=== PATIENT | female | born 1965 | race Caucasian/White ===

== ENCOUNTER 2018-09-16 14:06 | Inpatient (IN) | payer BC ==
[~2018-09-16] VITALS: Ht 152.4 cm; Wt 124.3 kg
[2018-09-16] MEDS ORDERED: IPRATRPIUM/ALBUTEROL 0.5/2.5MG 3 ML NEBU. NEB ONE (14:30)
[2018-09-16 14:44] LABS: BASO % 0 % (0-3); EOS % 0 % (0-3); HEMATOCRIT 41.3 % (36.0-47.0); HEMOGLOBIN 13.9 g/dL (12.0-15.5); LYMPH # 0.9 x10^3/uL (1.0-4.8); LYMPH % 13 % (24-48); MEAN CORPUSCULAR HEMOGLOBIN 28 pg (25-35); MEAN CORPUSCULAR HGB CONC 34 g/dL (31-37); MEAN CORPUSCULAR VOLUME 83 fL (79-100); MONO # 0.2 x10^3/uL (0.0-1.1); MONO % 3 % (0-9); NEUT # 5.9 x10^3uL (1.8-7.7); NEUT % 84 % (31-73); PLATELET COUNT 262 x10^3/uL (140-400); RED CELL DISTRIBUTION WIDTH 14.8 % (11.5-14.5)
--- NOTE | 2018-09-16 14:57 | RAD ---
Exam performed: 2 views chest HISTORY: Shortness of air and wheezing. DATE OF SERVICE: 09/16/2018. COMPARISON: None available FINDINGS: PA and lateral views of the chest are obtained. Heart size and mediastinal silhouette is within limits of normal. Retrocardiac infiltrates are seen. No pleural effusion or pneumothorax seen. IMPRESSION: Retrocardiac infiltrates seen best on lateral projection. Electronically signed by: Bella Cornell MD (09/16/2018 2:53 PM) [facility]
[2018-09-16 14:59] LABS: ALBUMIN 4.1 g/dL (3.4-5.0); ALBUMIN/GLOBULIN RATIO 1.1 (1.0-1.7); CALCIUM 8.9 mg/dL (8.5-10.1); GFR 58.2; POTASSIUM 4.4 mmol/L (3.5-5.1); TOTAL BILIRUBIN 0.3 mg/dL (0.2-1.0); TOTAL PROTEIN 7.8 g/dL (6.4-8.2)
[2018-09-16] MEDS ORDERED: ALBUTEROL SULFATE 2.5 MG/3 ML NEBU. CONT NEB ONE (15:00)
[2018-09-16] MEDS ORDERED: methylPREDNISolone SOD SUCC PF 125 MG/2 ML VIAL. IV ONE (15:00)
--- NOTE | 2018-09-16 15:01 | PHYS DOC ---
Adult General Chief Complaint Chief Complaint: SHORTNESS OF BREATH HPI HPI 52-year-old female presents with shortness of breath. The patient was seen by her PCP is ago and diagnosed with possible pneumonia. She was placed on prednisone, albuterol MDI, a by mouth nebulizer, and azithromycin. The patient went to work today, but she continues to have worsening shortness of breath. She feels like she is wheezing a lot at this point. She denies chest pain or diaphoresis. Has a history of intermittent asthma. She also has a history of pneumonia at least once a year typically. Patient has felt feverish at home, but thinks it broke today. She has been using her nebulizer and MDI as directed without relief. Review of Systems Review of Systems Constitutional: Denies fever or chills [] Eyes: Denies change in visual acuity, redness, or eye pain [] HENT: Denies nasal congestion or sore throat [] Respiratory: Cough with shortness of breath [] Cardiovascular: No additional information not addressed in HPI [] GI: Denies abdominal pain, nausea, vomiting, bloody stools or diarrhea [] : Denies dysuria or hematuria [] Musculoskeletal: Denies back pain or joint pain [] Integument: Denies rash or skin lesions [] Neurologic: Denies headache, focal weakness or sensory changes [] Endocrine: Denies polyuria or polydipsia [] All other systems were reviewed and found to be within normal limits, except as documented in this note. Current Medications Current Medications Current Medications Medications (Trade) Dose Ordered Sig/Franco Start Time Stop Time Status Last Admin Dose Admin Albuterol/ Ipratropium (Duoneb) 3 ml 1X ONCE 09/16/18 14:30 09/16/18 14:31 UNV 09/16/18 14:05 3 ML Physical Exam Physical Exam Constitutional: Well developed, well nourished, no acute distress, non-toxic appearance. [] HENT: Normocephalic, atraumatic, bilateral external ears normal, oropharynx moist, no oral exudates, nose normal. [] Eyes: PERRLA, EOMI, conjunctiva normal, no discharge. [] Neck: Normal range of motion, no tenderness, supple, no stridor. [] Cardiovascular:Heart rate regular rhythm, no murmur [] Lungs & Thorax: Diffuse, severe expiratory wheezing bilaterally[] Abdomen: Bowel sounds normal, soft, no tenderness, no masses, no pulsatile masses. [] Skin: Warm, dry, no erythema, no rash. [] Back: No tenderness, no CVA tenderness. [] Extremities: No tenderness, no cyanosis, no clubbing, ROM intact, no edema. [] Neurologic: Alert and oriented X 3, normal motor function, normal sensory function, no focal deficits noted. [] Psychologic: Affect normal, judgement normal, mood normal. [] Current Patient Data Vital Signs Vital Signs Date Time Temp Pulse Resp B/P (MAP) Pulse Ox O2 Delivery O2 Flow Rate FiO2 09/16/18 14:10 97 Room Air Lab Results Laboratory Tests Test 09/16/18 14:14 White Blood Count 7.0 x10^3/uL (4.0-11.0) Red Blood Count 5.00 x10^6/uL (3.50-5.40) Hemoglobin 13.9 g/dL (12.0-15.5) Hematocrit 41.3 % (36.0-47.0) Mean Corpuscular Volume 83 fL (79-100) Mean Corpuscular Hemoglobin 28 pg (25-35) Mean Corpuscular Hemoglobin Concent 34 g/dL (31-37) Red Cell Distribution Width 14.8 % (11.5-14.5) H Platelet Count 262 x10^3/uL (140-400) Neutrophils (%) (Auto) 84 % (31-73) H Lymphocytes (%) (Auto) 13 % (24-48) L Monocytes (%) (Auto) 3 % (0-9) Eosinophils (%) (Auto) 0 % (0-3) Basophils (%) (Auto) 0 % (0-3) Neutrophils # (Auto) 5.9 x10^3uL (1.8-7.7) Lymphocytes # (Auto) 0.9 x10^3/uL (1.0-4.8) L Monocytes # (Auto) 0.2 x10^3/uL (0.0-1.1) Eosinophils # (Auto) 0.0 x10^3/uL (0.0-0.7) Basophils # (Auto) 0.0 x10^3/uL (0.0-0.2) Lactic Acid Level 0.9 mmol/L (0.4-2.0) EKG EKG [] Radiology/Procedures Radiology/Procedures [] Impressions: Exam performed: 2 views chest HISTORY: Shortness of air and wheezing. DATE OF SERVICE: 09/16/2018. COMPARISON: None available FINDINGS: PA and lateral views of the chest are obtained. Heart size and mediastinal silhouette is within limits of normal. Retrocardiac infiltrates are seen. No pleural effusion or pneumothorax seen. IMPRESSION: Retrocardiac infiltrates seen best on lateral projection. Electronically signed by: Bella Cornell MD (09/16/2018 2:53 PM) [facility] DICTATED AND SIGNED BY: BELLA CORNELL MD DATE: 09/16/18 [id number] CC: RANDAL DUPONT DO ~ Course & Med Decision Making Course & Med Decision Making Pertinent Labs and Imaging studies reviewed. (See chart for details) The patient was given a DuoNeb after arrival. She continued to have significant wheezing. I have given her 125 of Solu-Medrol and a 1 hour albuterol nebulizer treatment. Her chest x-ray does show retrocardiac pneumonia. She is already on azithromycin. I will add Rocephin. Since patient is felt outpatient management, I will admit her to the hospital. I discussed the patient with Dr. Daily and he has accepted the patient for admission. [] Dragon Disclaimer Dragon Disclaimer This electronic medical record was generated, in whole or in part, using a voice recognition dictation system. Departure Departure: Impression: Primary Impression: Pneumonia Additional Impression: Asthma exacerbation Disposition: ADMITTED INPATIENT Condition: STABLE Problem Qualifiers Primary Impression: Pneumonia Pneumonia type: due to unspecified organism Laterality: left Lung location : lower lobe of lung Qualified Codes: J18.1 - Lobar pneumonia, unspecified organism Additional Impression: Asthma exacerbation Asthma severity: mild Asthma persistence: intermittent Qualified Codes: J45.21 - Mild intermittent asthma with (acute) exacerbation RANDAL DUPONT DO Sep 16, 2018 15:01
[2018-09-16] MEDS ORDERED: methylPREDNISolone SOD SUCC PF 125 MG/2 ML VIAL. ONE (15:24)
[2018-09-16] MEDS ORDERED: cefTRIAXone SODIUM 1 GM VIAL ONE (16:05)
[2018-09-16] MEDS ORDERED: IV NORMAL SALINE 50ML 50 ML ONE (16:05)
[2018-09-16 17:15] VITALS: BP 186/86
[2018-09-16] MEDS ORDERED: HYDR-2155 PO (17:32)
[2018-09-16] MEDS ORDERED: AZIT1PAC PO (17:32)
[2018-09-16] MEDS ORDERED: PRED20TA PO (17:32)
[2018-09-16 18:23] VITALS: BP 131/84
[2018-09-16] MEDS ORDERED: ALBU0.63 NEB (19:09)
[2018-09-16] MEDS ORDERED: PIP/TAZO PER PHARMACY MC PRN (19:15)
[2018-09-16] MEDS ORDERED: DEXTROSE 50% 25 GM / 50ML DISP.SYRIN. IV PRN (19:15)
[2018-09-16] MEDS: VANCOMYCIN PER PHARMACY MC PRN (19:19)
[2018-09-16] MEDS: ALBUTEROL SULFATE 2.5 MG/3 ML NEBU. NEB PRN (19:48)
[2018-09-16] MEDS ORDERED: VANCOMYCIN 1 GM in IV NORMAL SALINE 250ML 250 ML IV ONE ×2 (20:00→21:00)
[2018-09-16 20:06] VITALS: BP 145/92
[2018-09-16 22:40] VITALS: BP 152/97
[2018-09-16] MEDS: PIPERACILLIN/TAZOBACTAM 3.375 GM in IV NORMAL SALINE 50ML 50 ML IV SCH (23:31)
[2018-09-16] MEDS: methylPREDNISolone SOD SUCC PF 40 MG/ML VIAL. IV SCH (23:31)
[2018-09-17] MEDS: methylPREDNISolone SOD SUCC PF 40 MG/ML VIAL. IV SCH ×4 (05:30→23:45)
[2018-09-17] MEDS: ALBUTEROL SULFATE 2.5 MG/3 ML NEBU. NEB PRN ×4 (05:30→19:44)
[2018-09-17] MEDS: PIPERACILLIN/TAZOBACTAM 3.375 GM in IV NORMAL SALINE 50ML 50 ML IV SCH ×4 (05:31→23:46)
[2018-09-17 07:20] LABS: CALCIUM 8.9 mg/dL (8.5-10.1); CREATININE 0.7 mg/dL (0.6-1.0); GFR 87.9; POTASSIUM 3.9 mmol/L (3.5-5.1)
[2018-09-17 07:21] LABS: BASO % 0 % (0-3); EOS % 0 % (0-3); HEMATOCRIT 43.1 % (36.0-47.0); HEMOGLOBIN 14.3 g/dL (12.0-15.5); LYMPH # 0.8 x10^3/uL (1.0-4.8); LYMPH % 13 % (24-48); MEAN CORPUSCULAR HEMOGLOBIN 27 pg (25-35); MEAN CORPUSCULAR HGB CONC 33 g/dL (31-37); MEAN CORPUSCULAR VOLUME 83 fL (79-100); MONO # 0.1 x10^3/uL (0.0-1.1); MONO % 1 % (0-9); NEUT # 5.1 x10^3uL (1.8-7.7); NEUT % 86 % (31-73); PLATELET COUNT 263 x10^3/uL (140-400); RED BLOOD COUNT 5.22 x10^6/uL (3.50-5.40); RED CELL DISTRIBUTION WIDTH 14.5 % (11.5-14.5)
[2018-09-17 07:36] LABS: BACTERIA,URINE 0 /HPF (0-FEW); BILIRUBIN,URINE NEG (NEG); CLARITY,URINE CLEAR; COLOR,URINE YELLOW; GLUCOSE,URINE NEG (NEG); NITRITE,URINE NEG (NEG); RBC,URINE OCC /HPF (0-2); SQUAMOUS EPITHELIAL CELL,UR OCC /LPF; UROBILINOGEN,URINE 0.2 mg/dL (0.2 mg/dL); WBC,URINE OCC /HPF (0-4)
[2018-09-17 07:55] VITALS: BP 145/92
[2018-09-17] MEDS: VANCOMYCIN 1.25 GM in IV NORMAL SALINE 250ML 250 ML IV SCH ×2 (08:06→20:38)
[2018-09-17] MEDS: INSULIN LISPRO 300 UNITS/3 ML INSULN.PEN. SQ SCH ×3 (08:06→17:12)
[2018-09-17] MEDS: LACTOBACILLUS RHAMNOSUS GG 1 CAPSULE. PO SCH ×2 (09:00→20:37)
[2018-09-17 10:52] VITALS: BP 112/69
--- NOTE | 2018-09-17 12:32 | HP ---
ADMIT DATE: 09/17/2018 HISTORY OF PRESENT ILLNESS: The patient is a 52-year-old female patient, who came to the Emergency Room complaining of shortness of breath. Apparently, she has had chest tightness, cough which is mostly dry together with orthopnea has been going on for almost 3 weeks. She apparently saw her primary care physician last Tuesday and was given a prescription for prednisone metered inhaler and azithromycin. However, her symptoms did not improve and therefore she came to the Emergency Room with worsening shortness of breath, chest tightness, wheezing, cough that is mostly dry hacking and orthopnea. She was unable to lie flat and has not been able to sleep. She was evaluated. She is known to have intermittent asthma and she did report that she was feverish at home and has been using her nebulizer and MDI as directed without much relief and therefore she was seen in the Emergency Room and was extensively evaluated. Her chest x-ray showed that the patient has retrocardiac infiltrate, seen best on the lateral projection and therefore she was admitted with community-acquired pneumonia and acute asthma exacerbation. PAST MEDICAL HISTORY: Significant for bronchial asthma. She used to be on antihypertensive medication, but she lost weight and her blood pressure has improved since then. PAST SURGICAL HISTORY: Significant for right hip fracture, status post open reduction and internal fixation, right knee fracture, status post open reduction and internal fixation. She had a total of 6 surgeries. She had broken her right lower extremity while playing dodgeball when she was 15 years old. She has left breast biopsy that turned out to be benign. She had tonsillectomy and adenoidectomy, left forearm fracture treated with closed reduction and both ankle fractures treated also with closed reduction. ALLERGIES: She is allergic to EGGS and CODEINE. MEDICATIONS: She is currently on Vicodin and prednisone as well as albuterol sulfate and azithromycin. FAMILY HISTORY: She has 2 sisters, one sister at the age of 61 because of lung cancer. Her other sister is still alive and healthy. She had 4 brothers, 2 were diseased, one was killed on the job at the age of 55. Her other brother was 17 years old and in a motor vehicle accident. The other 2 brothers are diabetic, but otherwise healthy. Her father at the age of 80 with prostate cancer and mother when she was 60 years old because of breast cancer. SOCIAL HISTORY: She is . She has no children of her own. She does not drink alcohol, does not smoke or use any drugs. She works at the [employer]. REVIEW OF SYSTEMS: As per history of present illness. PHYSICAL EXAMINATION: GENERAL: On arrival to the Emergency Room, she looked well with no pallor, jaundice, cyanosis or thyromegaly. No jugular venous distention. No limb edema. VITAL SIGNS: Her heart rate was 82, blood pressure 186/86, her temperature was 97.8, respiratory rate 24 and oxygen saturation was 98%. HEAD, EYES, EARS, NOSE, AND THROAT: Showed normocephalic, atraumatic. NECK: Supple. HEART: Showed normal first and second heart sounds. No gallop, rub or murmur. CHEST: Shows central trachea, equally reduced expansion, reduced air entry, vesicular breath sounds with diffuse bilateral scattered rhonchi. I could not appreciate any crepitation. ABDOMEN: Distended, soft, nontender. NEUROLOGIC: She was awake, alert, responding appropriately. All cranial nerves intact. EXTREMITIES: She moves extremities without difficulty. She ambulates without assistance or assistive devices. LABORATORY DATA: On admission showed a white cell count of 7000, hemoglobin 14, hematocrit 41, MCV 83, and platelet count of 262,000. Her serum sodium was 141, potassium of 4.4, chloride 104, bicarbonate 28, anion gap of 9, BUN 31, creatinine 1, estimated GFR was 58 mL per minute. Her glucose 136, calcium was 8.9. Total bilirubin, AST, ALT, alkaline phosphatase were normal. Total protein was 7.8, albumin was 4.1. Her urinalysis was essentially unremarkable. The PA and lateral view of the chest showed that the heart size and mediastinal silhouette is within normal limits. Retrocardiac infiltrates are seen. No pleural effusion. ASSESSMENT: The patient was admitted and given the fact that she has failed outpatient treatment. I started her on IV vancomycin as well as Zosyn together methylprednisolone and nebulized albuterol and Atrovent. We will follow her daily and decide on further management accordingly. ADMISSION DIAGNOSES: Community-acquired pneumonia that failed outpatient treatment, acute asthma exacerbation. FENG OSWALD MD DR: VERONA/genevieve JOB#: [id number] / [id number]
[2018-09-17 15:28] VITALS: BP 148/88
[2018-09-17 19:19] VITALS: BP 157/92
[2018-09-17 23:03] VITALS: BP 158/77
[2018-09-18] VITALS (7 sets, daily range): BP systolic 155–192; BP diastolic 82–108
[2018-09-18] MEDS ORDERED: ALBUTEROL SULFATE 2.5 MG/3 ML NEBU. ONE (02:07)
[2018-09-18] MEDS ORDERED: ALBUTEROL SULFATE 2.5 MG/3 ML NEBU. NEB PRN (02:15)
[2018-09-18] MEDS ORDERED: ALBUTEROL SULFATE 2.5 MG/3 ML NEBU. NEB SCH ×2 (04:00→08:00)
[2018-09-18] MEDS: PIPERACILLIN/TAZOBACTAM 3.375 GM in IV NORMAL SALINE 50ML 50 ML IV SCH ×4 (05:20→23:22)
[2018-09-18] MEDS: methylPREDNISolone SOD SUCC PF 40 MG/ML VIAL. IV SCH ×4 (05:20→23:22)
[2018-09-18] MEDS: INSULIN LISPRO 300 UNITS/3 ML INSULN.PEN. SQ SCH ×3 (07:56→16:55)
[2018-09-18] MEDS: ALBUTEROL SULFATE 2.5 MG/3 ML NEBU. NEB SCH ×4 (08:00→20:14)
[2018-09-18 08:06] LABS: HEMATOCRIT 41.1 % (36.0-47.0); HEMOGLOBIN 13.6 g/dL (12.0-15.5); RED BLOOD COUNT 4.99 x10^6/uL (3.50-5.40)
[2018-09-18 08:12] LABS: WHITE BLOOD COUNT 13.9 x10^3/uL (4.0-11.0)
[2018-09-18] MEDS: LACTOBACILLUS RHAMNOSUS GG 1 CAPSULE. PO SCH ×2 (08:19→20:25)
[2018-09-18 08:25] LABS: VANC TR 11.3 mcg/mL (10.0-20.0)
[2018-09-18 08:27] LABS: ALBUMIN 3.4 g/dL (3.4-5.0); ALBUMIN/GLOBULIN RATIO 0.9 (1.0-1.7); CALCIUM 8.5 mg/dL (8.5-10.1); CREATININE 0.9 mg/dL (0.6-1.0); GFR 65.8; POTASSIUM 3.8 mmol/L (3.5-5.1); TOTAL BILIRUBIN 0.3 mg/dL (0.2-1.0)
[2018-09-18] MEDS: VANCOMYCIN 1.25 GM in IV NORMAL SALINE 250ML 250 ML IV SCH (08:45)
[2018-09-18] MEDS: VANCOMYCIN PER PHARMACY MC PRN (12:18)
[2018-09-18] MEDS ORDERED: amLODIPine BESYLATE 5 MG TABLET PO ONE (15:15)
[2018-09-18] MEDS: MONTELUKAST 10 MG TABLET. PO SCH (20:25)
[2018-09-18] MEDS: VANCOMYCIN 1.5 GM in IV NORMAL SALINE 500ML 500 ML IV SCH (20:25)
--- NOTE | 2018-09-18 20:58 | PN ---
DATE: 09/18/2018 SUBJECTIVE: The patient is sitting at the edge of the bed, eating her lunch, continued to have recurrent bouts of cough with scanty sputum. Continued to have chest tightness and wheezing, but no chills, rigors or fever. PHYSICAL EXAMINATION: GENERAL: When I examined her, she looked well. No pallor, jaundice, cyanosis, or thyromegaly. No jugular venous distension. No lower limb edema. VITAL SIGNS: Her heart rate was 77, blood pressure was 157/82, temperature was 97.9, respiratory rate was 24, and oxygen saturation was 93% on room air. HEAD, EYES, EARS, NOSE AND THROAT: Showed normocephalic, atraumatic. NECK: Supple. HEART: Showed normal first and second heart sounds. No gallop, rub or murmur. CHEST: Shows central trachea, equal bilateral expansion, air entry with bilateral scattered rhonchi. I could not appreciate any crepitation. ABDOMEN: Distended, soft, nontender. NEUROLOGIC: She was grossly intact. Her intake over the last 24 hours was 1400, no output was recorded. LABORATORY DATA: Her lab work this morning showed her white cell count to be slightly up at 13,900, likely due to steroid effect. Her hemoglobin was 14, hematocrit 41, MCV 82 and platelet count 261,000. Her serum sodium was 143, potassium 3.8, chloride 107, bicarbonate was 25, anion gap of 11, BUN 19, creatinine was 0.9, estimated GFR was 66 mL per minute. Her glucose was 159, calcium was 8.5. Total bilirubin, AST, ALT, alkaline phosphatase were normal. Total protein was 7, albumin was 3.4. ASSESSMENT: 1. Community-acquired pneumonia that has failed outpatient therapy. 2. Severe acute asthma exacerbation. PLAN: Continue with the IV antibiotic as well as bronchodilator and steroids. I will add Mucinex and Singulair. So far, all her cultures are negative. FENG OSWALD MD DR: VERONA/genevieve JOB#: [id number] / [id number]
[2018-09-19] MEDS: ALBUTEROL SULFATE 2.5 MG/3 ML NEBU. NEB SCH ×4 (05:03→19:50)
[2018-09-19] MEDS: methylPREDNISolone SOD SUCC PF 40 MG/ML VIAL. IV SCH ×3 (05:08→20:18)
[2018-09-19] MEDS: PIPERACILLIN/TAZOBACTAM 3.375 GM in IV NORMAL SALINE 50ML 50 ML IV SCH ×4 (05:08→22:57)
[2018-09-19 05:41] VITALS: BP 152/78
[2018-09-19 06:55] LABS: HEMATOCRIT 43.8 % (36.0-47.0); HEMOGLOBIN 14.3 g/dL (12.0-15.5); RED BLOOD COUNT 5.15 x10^6/uL (3.50-5.40); RED CELL DISTRIBUTION WIDTH 15.2 % (11.5-14.5); WHITE BLOOD COUNT 15.2 x10^3/uL (4.0-11.0)
[2018-09-19] MEDS: LACTOBACILLUS RHAMNOSUS GG 1 CAPSULE. PO SCH ×2 (08:27→20:19)
[2018-09-19] MEDS: VANCOMYCIN 1.5 GM in IV NORMAL SALINE 500ML 500 ML IV SCH (08:29)
[2018-09-19] MEDS: INSULIN LISPRO 300 UNITS/3 ML INSULN.PEN. SQ SCH ×3 (08:34→17:24)
[2018-09-19 10:49] VITALS: BP 171/89
[2018-09-19] MEDS ORDERED: guaiFENesin DM 200MG/20MG 10 ML SYRUP PO PRN (13:00)
[2018-09-19] MEDS ORDERED: amLODIPine BESYLATE 5 MG TABLET PO ONE (13:00)
--- NOTE | 2018-09-19 14:10 | PN ---
DATE: 09/19/2018 SUBJECTIVE: The patient is sitting on the edge of the bed, continued to have cough. She apparently has not slept the whole night yesterday because of the dry hacking cough; however, when I examined her this morning, she looked well and was clearly in no apparent respiratory distress. There is no pallor, jaundice, cyanosis, or thyromegaly. No jugular venous distension. No lower limb edema. PHYSICAL EXAMINATION: VITAL SIGNS: Her heart rate was 66, blood pressure was 141/89, temperature was 98, respiratory rate was 20, and oxygen saturation was 96% on room air. HEAD, EYES, EARS, NOSE AND THROAT: Showed normocephalic, atraumatic. NECK: Supple. HEART: Showed normal first and second sounds. No gallop, rub or murmur. CHEST: Clear to auscultation. There were few scattered rhonchi. I could not appreciate any crepitation. ABDOMEN: Distended, soft, nontender. No guarding or rigidity. No organomegaly. All hernial orifices are intact. Bowel sounds normal. NEUROLOGIC: She was awake, alert, and responding appropriately. All cranial nerves intact. She moves extremities without difficulty. Her intake and output, her intake was 1700, no output was recorded. LABORATORY DATA: Her lab work this morning showed a white cell count 15,000, hemoglobin 14, hematocrit 44, MCV 85 and platelet count of 136,000. Her chemistry showed that her BUN is 19, creatinine 0.9. Her blood sugars are slightly elevated. ASSESSMENT: 1. Community-acquired pneumonia that has failed outpatient therapy. Her blood culture so far negative, so I discontinued her vancomycin. 2. Severe acute asthma exacerbation, improving slowly. 3. Hypertension. 4. Steroid-induced hyperglycemia. PLAN: My plan is to discontinue her vancomycin. Continue with Zosyn. To cut down her Solu-Medrol to 60 mg every 8 hours. We will start her on a scheduled medication for hypertension. FENG OSWALD MD DR: VERONA/genevieve JOB#: [id number] / [id number]
[2018-09-19 15:25] VITALS: BP 155/82
[2018-09-19 19:18] VITALS: BP 145/83
[2018-09-19] MEDS: MONTELUKAST 10 MG TABLET. PO SCH (20:19)
[2018-09-19 23:14] VITALS: BP 152/75
[2018-09-20 00:08] LABS: HEMOGLOBIN A1C 5.6 % (4.8-5.6)
[2018-09-20] MEDS: ALBUTEROL SULFATE 2.5 MG/3 ML NEBU. NEB SCH ×4 (01:06→20:13)
[2018-09-20 05:37] VITALS: BP 167/98
[2018-09-20] MEDS: methylPREDNISolone SOD SUCC PF 40 MG/ML VIAL. IV SCH ×3 (05:41→20:42)
[2018-09-20] MEDS: PIPERACILLIN/TAZOBACTAM 3.375 GM in IV NORMAL SALINE 50ML 50 ML IV SCH ×4 (05:41→23:47)
[2018-09-20 06:28] LABS: CALCIUM 8.8 mg/dL (8.5-10.1); CREATININE 0.8 mg/dL (0.6-1.0); GFR 75.3; POTASSIUM 3.6 mmol/L (3.5-5.1)
[2018-09-20] MEDS: INSULIN LISPRO 300 UNITS/3 ML INSULN.PEN. SQ SCH ×3 (08:00→17:36)
[2018-09-20] MEDS: HYDROcodone/APAP 5/325MG 1 TAB TABLET PO PRN ×2 (08:08→19:28)
[2018-09-20] MEDS: LACTOBACILLUS RHAMNOSUS GG 1 CAPSULE. PO SCH ×2 (08:33→20:41)
[2018-09-20] MEDS: amLODIPine BESYLATE 10 MG TABLET PO SCH (08:34)
[2018-09-20 11:00] VITALS: BP 120/78
[2018-09-20 14:47] VITALS: BP 130/78
--- NOTE | 2018-09-20 16:22 | PN ---
DATE: 09/20/2018 SUBJECTIVE: The patient is sitting on the edge of the bed comfortably, eating her lunch. She continued to have cough and chest pain because of recurrent bouts of the dry hacking cough; however, she generally feeling somewhat better. She has had a shower today. She was able to walk. PHYSICAL EXAMINATION: GENERAL: When I examined her, she looked well and was clearly in no apparent respiratory distress. No pallor, jaundice, cyanosis, or thyromegaly. No jugular venous distension. No lower limb edema. VITAL SIGNS: Her heart rate was 55, blood pressure 120/78, temperature was 97.6, respiratory rate was 18 and oxygen saturation was 99%. HEAD, EYES, EARS, NOSE AND THROAT: Showed normocephalic, atraumatic. NECK: Supple. HEART: Showed normal first and second heart sounds. No gallop, rub or murmur. CHEST: Clear to auscultation. No crepitation or rhonchi. ABDOMEN: Distended, soft, nontender. NEUROLOGIC: She is awake, alert, responding appropriately. All cranial nerves intact. She moves extremities without difficulty and she ambulates without assistance or assistive devices. Her intake was 1100, no output was recorded. LABORATORY DATA: This morning her white cell count was slightly high at 15,200, hemoglobin 14, hematocrit 44, MCV 85 and platelet count 256,000. Her chemistry showed a serum sodium 142, potassium 3.6, chloride 105, bicarbonate 26, anion gap of 11, BUN 19, creatinine 0.8, estimated GFR was 75 mL per minute. Her glucose was 141, calcium was 8.8. ASSESSMENT: In summary, this is a 52-year-old female patient with: 1. Community-acquired pneumonia, failed outpatient therapy. Her blood cultures so far negative. I discontinued her vancomycin. 2. Severe acute asthma exacerbation, improving slowly. 3. Hypertension. 4. Steroid-induced hyperglycemia. PLAN: To cut down her steroids to every 12 hours and decide on further management accordingly. FENG OSWALD MD DR: VERONA/genevieve JOB#: [id number] / [id number]
[2018-09-20 19:20] VITALS: BP 151/85
[2018-09-20] MEDS: MONTELUKAST 10 MG TABLET. PO SCH (20:41)
[2018-09-20 22:32] VITALS: BP 155/71
[2018-09-21 05:02] VITALS: BP 166/82
[2018-09-21] MEDS: ALBUTEROL SULFATE 2.5 MG/3 ML NEBU. NEB SCH ×3 (05:30→15:12)
[2018-09-21] MEDS: PIPERACILLIN/TAZOBACTAM 3.375 GM in IV NORMAL SALINE 50ML 50 ML IV SCH ×2 (05:47→12:23)
[2018-09-21 06:20] LABS: HEMATOCRIT 43.1 % (36.0-47.0); HEMOGLOBIN 14.4 g/dL (12.0-15.5); RED BLOOD COUNT 5.23 x10^6/uL (3.50-5.40)
[2018-09-21 06:26] LABS: CALCIUM 8.5 mg/dL (8.5-10.1); CREATININE 0.8 mg/dL (0.6-1.0); GFR 75.3
[2018-09-21] MEDS: INSULIN LISPRO 300 UNITS/3 ML INSULN.PEN. SQ SCH ×2 (07:29→12:27)
[2018-09-21] MEDS: amLODIPine BESYLATE 10 MG TABLET PO SCH (08:54)
[2018-09-21] MEDS: LACTOBACILLUS RHAMNOSUS GG 1 CAPSULE. PO SCH (08:54)
[2018-09-21] MEDS: methylPREDNISolone SOD SUCC PF 40 MG/ML VIAL. IV SCH (08:55)
[2018-09-21 10:51] VITALS: BP 136/76
[2018-09-21 15:00] VITALS: BP 142/75
[2018-09-21] MEDS ORDERED: GUAI600T47 PO (15:26)
[2018-09-21] MEDS ORDERED: AMOX1TAB61 PO (15:26)
[2018-09-21] MEDS ORDERED: AMLO10TA8 PO (15:26)
[2018-09-21] MEDS ORDERED: IPRA3AMP29 NEB (15:26)
--- NOTE | 2018-09-21 16:35 | DS ---
DATE OF DISCHARGE: 09/21/2018 HOSPITAL COURSE: The patient is a 52-year-old female patient who was admitted to the Emergency Room with a complaint of shortness of breath, has a chest tightness, cough, which is mostly dry together with orthopnea. It has been going on for almost 3 weeks. She apparently saw her primary care physician, has given a prescription for prednisone and metered inhaler and azithromycin without much improvement and she was admitted, started on IV antibiotic, IV steroids, together with nebulized albuterol and Atrovent took a while, but she eventually has responded. PHYSICAL EXAMINATION: GENERAL: When I saw her today, she was sitting in the edge of the bed comfortably, in no apparent distress. She was able to talk without difficulty, without pauses. She has been up and about, walking without any difficulty. Stated that she slept very well last night, flat in bed and was requesting to be discharged home. When I saw her, she looked pale, but no jaundice, cyanosis or thyromegaly. No jugular venous distention. No limb edema. VITAL SIGNS: Her heart rate was 67, blood pressure 136/76, temperature was 97.7, respiratory rate was 20, and oxygen saturation was 95% on room air. HEAD, EYES, EARS, NOSE AND THROAT: Showed normocephalic, atraumatic. NECK: Supple. HEART: Showed normal first and second heart sounds. No gallop, rub or murmur. CHEST: Shows central trachea, equal bilateral expansion, air entry. Vesicular sounds showed diffuse scattered rhonchi. I could not appreciate any crepitation. ABDOMEN: Distended, soft, nontender. NEUROLOGIC: She is awake, alert, responding appropriately. All cranial nerves are intact. She moves extremities without difficulty. She ambulates without assistance or assistive devices. Her intake over the last 24 hours was 1740. No output was recorded. LABORATORY DATA: This morning showed a serum sodium 142, potassium 4, chloride 104, bicarbonate 30, anion gap of 8, BUN 18, creatinine 0.8, estimated GFR was 75 mL per minute. Her glucose 151, calcium was 8.5. Her white cell count was 13,000, hemoglobin was 14.4, hematocrit 43, MCV 82 and platelet count 280,000. Her urinalysis was essentially unremarkable. So far, all her blood cultures are negative after 5 days. DISCHARGE MEDICATIONS: She was discharged home to continue albuterol sulfate by nebulizer 4 times a day, hydrocodone/APAP 5/325 one tablet every 6 hours, prednisone 40 mg orally daily for 3 days, then 30 mg once a day for 3 days, 20 mg once a day for 3 days, and 10 mg once a day for 3 days. She should be on Augmentin 875 mg twice a day with food for 7 more days and Amlodipine 10 mg daily and Mucinex 600 mg twice a day. FINAL DISCHARGE DIAGNOSES: Community-acquired pneumonia with failed outpatient therapy. Her blood culture so far negative. She will be discharged to continue with Augmentin 875 mg twice a day for 7 more days, severe acute asthma exacerbation, hypertension, steroid induced hyperglycemia. FENG OSWALD MD DR: VERONA/genevieve JOB#: [id number] / [id number]
== END 2018-09-21 16:50 | disposition home or self-care (01) | DRG 202 ==
LOC: ER 14:06 → 1 SOUTH 16:50
PROVIDERS: ADMIT Internal Medicine; ATTEND Internal Medicine
DX: J45.21 Mild intermittent asthma with (acute) exacerbation (principal); J18.9 Pneumonia, unspecified organism; I10 Essential (primary) hypertension; T38.0X5A Adverse effect of glucocorticoids and synthetic analogues, initial encounter; Z80.1 Family history of malignant neoplasm of trachea, bronchus and lung; Z80.3 Family history of malignant neoplasm of breast; Z83.3 Family history of diabetes mellitus; Z87.01 Personal history of pneumonia (recurrent); Z88.8 Allergy status to other drugs, medicaments and biological substances; Z91.012 Allergy to eggs
CPT/HCPCS: 36415; 71046; 80048; 80053; 80202; 81001; 82947; 83036; 83605; 84145; 85025; 85027; 87040; 94640; 96365; 96375; J0696; J1815; J2543; J2920; J2930; J3370; J7040; J7050; J7613; J7620; 99285-25

== ENCOUNTER → 2018-10-06 | Outpatient (CLI) | payer BC ==
[2018-09-21 15:00] VITALS: BP 142/75
[~2018-10-06] MED LIST: ALBU0.63 NEB; AMLO10TA8 PO; AMOX1TAB61 PO; AZIT1PAC PO; GUAI600T47 PO; HYDR-2155 PO; IPRA3AMP29 NEB; PRED20TA PO
--- NOTE | 2018-10-06 10:04 | RAD ---
Right lower extremity venous ultrasound, 10/06/2018 : History: Posterior calf pain, injury Duplex evaluation including grayscale, color flow and spectral Doppler analysis was performed. The femoral and popliteal veins show no filling defects to suggest DVT. The visualized deep veins in the right calf are unremarkable. A limited exam of the area of clinical concern in the posterior aspect of the lower right calf reveals a minimal streaky elongated hypoechoic process suggesting edema and/or minimal hemorrhage. IMPRESSION: There is no sonographic evidence of deep vein thrombosis in the right lower extremity Electronically signed by: Tomas Miranda MD (10/06/2018 10:01 AM) [facility]
== END | disposition home or self-care (01) ==
LOC: PMG 08:40
PROVIDERS: ATTEND Physician Assistant Medical
DX: S89.81XA Other specified injuries of right lower leg, initial encounter (principal); Y08.89XA Assault by other specified means, initial encounter; Y93.89 Activity, other specified; Y92.89 Other specified places as the place of occurrence of the external cause; Y99.8 Other external cause status
CPT/HCPCS: 93971

== ENCOUNTER → 2018-12-27 | Outpatient (CLI) | payer BC ==
--- NOTE | 2019-01-09 09:58 | RAD ---
DATE: 12/27/2018 10:00 AM EXAM: MAMMO MARYBEL SCREENING BILATERAL HISTORY: routine screening evaluation. COMPARISON: None Bilateral CC and MLO views of the breasts were performed. Bilateral breast tomosynthesis was performed in CC and MLO projections. This study was interpreted with the benefit of Computerized Aided Detection (CAD). FINDINGS: Breast Density: FATTY The Breast Parenchyma is primarily fatty replaced. Breast parenchyma level density A. Benign calcifications are present. No suspicious masses, microcalcifications or architectural distortion is present to suggest malignancy in either breast. The visualized axillae are unremarkable. IMPRESSION: No mammographic evidence of malignancy. BI-RADS CATEGORY: 2 BENIGN FINDING(S) RECOMMENDED FOLLOW-UP: 12M 12 MONTH FOLLOW-UP Annual screening mammography is recommended, unless clinically indicated sooner based on symptoms or change in physical exam. PQRS compliance statement: Patient information was entered into a reminder system with a target due date for the next mammogram. Mammography is a sensitive method for finding small breast cancers, but it does not detect them all and is not a substitute for careful clinical examination. A negative mammogram does not negate a clinically suspicious finding and should not result in delay in biopsying a clinically suspicious abnormality. "Our facility is accredited by the [employer] Mammography Program."
== END | disposition home or self-care (01) ==
LOC: MAMMO 09:35
PROVIDERS: ATTEND Physician Assistant Medical
DX: Z12.31 Encounter for screening mammogram for malignant neoplasm of breast (principal); N64.89 Other specified disorders of breast
CPT/HCPCS: 77063; 77067

== ENCOUNTER → 2019-01-31 | Outpatient (CLI) | payer BC ==
--- NOTE | 2019-01-31 07:47 | RAD ---
Chest radiograph 01/31/2019 12:00 AM INDICATION: Chest congestion and wheezing COMPARISON: 09/16/2018 TECHNIQUE: Frontal and lateral views of the chest are provided. FINDINGS: The cardiomediastinal silhouette is within normal limits. There are no pleural effusions. There is no pulmonary vascular congestion. There is no pneumothorax. Patchy airspace disease identified in the right mid middle and lower lobes. No significant osseous abnormality is identified. IMPRESSION: New patchy airspace disease identified in the right middle and lower lobes. Consideration may be given for pulmonary infiltrate in the appropriate clinical setting. Short-term follow-up radiograph is recommended to assess resolution. Electronically signed by: Bhargavi Cantu MD (01/31/2019 7:44 AM) [facility]
== END | disposition home or self-care (01) ==
LOC: PMG 07:15
PROVIDERS: ATTEND Physician Assistant Medical
DX: R09.89 Other specified symptoms and signs involving the circulatory and respiratory systems (principal); R06.2 Wheezing
CPT/HCPCS: 71046

== ENCOUNTER 2019-02-12 04:45 | Emergency (ER) | payer BC ==
[~2019-02-12] VITALS: Ht 152.4 cm; Wt 176.9 kg
[2019-02-12] MEDS ORDERED: DEXAMETHASONE SOD PHOS 10 MG/ML VIAL IM ONE (05:00)
[2019-02-12] MEDS ORDERED: ORPH-16 PO (05:02)
--- NOTE | 2019-02-12 05:03 | PHYS DOC ---
Past History Past Medical History: Asthma, COPD, Dementia, Hypertension, Pneumonia, Other Past Surgical History: No Surgical History Alcohol Use: None Drug Use: None Adult General Chief Complaint Chief Complaint: BACK INJURY HPI HPI Patient is a 53-year-old female who presents with complaint of bilateral lower back pain that started yesterday. Patient states that she had worked throughout the day with the pain and this morning she awoke and the pain was worse. She rates pain at a 9 out of 10. She denies any loss of bowel or bladder control. She also denies any saddle anesthesia. Patient indicates that she does do a lot of lifting at work but was not aware of any injury. She denies any urinary discomfort.[] Review of Systems Review of Systems Constitutional: Denies fever or chills [] Respiratory: Denies cough or shortness of breath [] Cardiovascular: No additional information not addressed in HPI [] GI: Denies abdominal pain, nausea, vomiting or diarrhea [] : Denies dysuria or hematuria [] Musculoskeletal: Complains of lower back pain [] Integument: Denies rash or skin lesions [] Neurologic: Denies headache, focal weakness or sensory changes [] Allergies Allergies Allergies Coded Allergies Type Severity Reaction Last Updated Verified egg Allergy Severe 09/16/18 Yes codeine Allergy Intermediate 09/18/18 Yes Physical Exam Physical Exam Constitutional: Well developed, well nourished, no acute distress, non-toxic appearance. [] Cardiovascular:Heart rate regular rhythm, no murmur [] Lungs & Thorax: Bilateral breath sounds clear to auscultation [] Skin: Warm, dry, no erythema, no rash. [] Back: There is moderate tenderness to palpation in the bilateral lower lumbar paraspinal musculature. [] Extremities: No tenderness, no cyanosis, no clubbing, ROM intact. [] Neurologic: Alert and oriented X 3, no focal deficits noted. [] EKG EKG [] Radiology/Procedures Radiology/Procedures [] Course & Med Decision Making Course & Med Decision Making Pertinent Labs and Imaging studies reviewed. (See chart for details) [] Dragon Disclaimer Dragon Disclaimer This electronic medical record was generated, in whole or in part, using a voice recognition dictation system. Departure Departure: Impression: Primary Impression: Acute low back pain Disposition: 01 HOME, SELF-CARE Condition: STABLE Referrals: RACHEL SCOTT (PCP) Patient Instructions: Back Pain, Adult Scripts Orphenadrine Citrate (ORPHENADRINE CITRATE) 100 Mg Tablet.er 1 TAB PO BID PRN for MUSCLE SPASMS, #14 TAB Prov: MILIND CLEVELAND Jr. DO 02/12/19 Problem Qualifiers Primary Impression: Acute low back pain Back pain laterality: bilateral Sciatica presence: without sciatica Qualified Codes: M54.5 - Low back pain MILIND CLEVELAND Jr. DO Feb 12, 2019 05:03
[2019-02-12] MEDS ORDERED: MORPHINE SULFATE 10 MG/ML SYRINGE. ONE (05:08)
[2019-02-12] MEDS ORDERED: MORPHINE SULFATE 10 MG/ML SYRINGE. IM ONE (05:30)
[2019-02-12] MEDS ORDERED: ORPHENADRINE CITRATE 60 MG/2 ML VIAL. IM ONE (05:30)
[2019-02-12] MEDS ORDERED: DEXAMETHASONE SOD PHOS 10 MG/ML VIAL PO ONE (05:30)
[2019-02-12 06:00] VITALS: BP 128/94
== END 2019-02-12 06:00 | disposition home or self-care (01) ==
LOC: ER 04:45
DX: M54.5 Low back pain (principal); J44.9 Chronic obstructive pulmonary disease, unspecified; I10 Essential (primary) hypertension; F03.90 Unspecified dementia, unspecified severity, without behavioral disturbance, psychotic disturbance, mood disturbance, and anxiety; Z88.5 Allergy status to narcotic agent; Z91.012 Allergy to eggs
CPT/HCPCS: 96372; 99284; J1100; J2270; J2360

== ENCOUNTER → 2019-02-19 | Outpatient (CLI) | payer BC ==
[2019-02-12 06:00] VITALS: BP 128/94
[~2019-02-19] MED LIST changes: +ORPH-16 PO
--- NOTE | 2019-02-19 11:11 | RAD ---
EXAM: Lumbar spine, 5 views. HISTORY: Pain. COMPARISON: None. FINDINGS: 5 views of the lumbar spine are obtained. There are hypoplastic T12 ribs and 5 nonrib-bearing lumbar segments. There is no significant listhesis. There is endplate remodeling and Schmorl's node formation at all levels. There is facet arthropathy predominantly at the lumbosacral junction. IMPRESSION: 1. Multilevel degenerative change throughout the lumbar spine. 2. No acute osseous finding. Electronically signed by: Vivian Fairchild MD (02/19/2019 11:08 AM) [place] [id number]
== END | disposition home or self-care (01) ==
LOC: DXRAD 08:21
PROVIDERS: ATTEND Physician Assistant Medical
DX: M47.816 Spondylosis without myelopathy or radiculopathy, lumbar region (principal); M25.78 Osteophyte, vertebrae
CPT/HCPCS: 72110